=== PATIENT | male | born 1935 | race Caucasian/White ===

== ENCOUNTER 2017-07-13 10:53 | Outpatient (CLI) | payer MEDICARE, BC ==
--- NOTE | 2017-07-13 20:55 | CONSULTATION NOTE ---
Palliative Care Consultation - Referral Referring Provider: Dr. 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 This has been difficult as currently on medications "that may or may not help", has not had any improvement in counts, and recognizes the seriousness of his current condition. Current treatment Danozol 300 mg BID, Jakafi 5 mg BID, and exjade for iron overload. He has had ongoing functional decline and fatigue, increased weakness and dizzyness, severe untreated chronic headache with negative MRI, has transitioned his care to [place] [place]" to minimize travel time and ease of transfusion support. Palliative care to establish goals of care, address symptom management, and here to establish care and rapport. Family meeting with patient, , and daughter Luz. 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 ( to Yuly over 59 years) Support System: Very supportive family in community, 2 children live on [place] and one in [place]. 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 Family History - Family History Family History: Mother: , Cancer (father of cancer 56; mother 89), Father: , Cancer Medications/Allergies - Medications Home Medications: Ambulatory Orders Medication Instructions Recorded Confirmed Finasteride 5 mg PO DAILY 10/12/15 07/13/17 LORazepam [Lorazepam] 1 mg PO DAILY PRN 10/12/15 07/13/17 Sertraline [Zoloft] 150 mg PO DAILY 10/12/15 07/13/17 Acetaminophen [Tylenol Extra 500 mg PO Q4H PRN 05/31/17 07/05/17 Strength] Atorvastatin [Lipitor] 20 mg PO DAILY 05/31/17 07/05/17 Clobetasol Propionate/Emoll 1 applic TOP DAILY 05/31/17 07/13/17 [Clobetasol Emollient 0.05% Crm] Danazol 300 mg PO BID 05/31/17 07/13/17 Metoprolol Succinate 25 mg PO DAILY 05/31/17 07/13/17 Multivitamin [Multiple Vitamins] 1 tab PO DAILY 05/31/17 07/13/17 Deferasirox [Exjade] 500 mg PO DAILY 06/24/17 07/13/17 Ruxolitinib Phosphate [Jakafi] 5 mg PO BID 07/08/17 07/13/17 Hydrocodone/Acetaminophen [Vicodin 0.5 - 1 tab PO Q4HR PRN 07/13/17 07/13/17 5-300 mg Tablet] Polyethylene Glycol 3350 [Miralax] 8.5 - 17 gm PO DAILY PRN 07/13/17 07/13/17 Senna [Senokot] 1 - 2 tab PO DAILY PRN 07/13/17 07/13/17 - Allergies Allergies/Adverse Reactions: Allergies Allergy/AdvReac Type Severity Reaction Status Date / Time No Known Drug Allergies Allergy Verified 11/22/15 14:29 Review of Systems - Constitutional Constitutional: reports: Fatigue, Weight loss, Other (hot flashes) - Eyes Eyes: reports: Vision loss, Corrective lenses - Ears, Nose & Throat Ears, Nose & Throat: reports: Tinnitus, Vertigo, Nasal congestion - Cardiovascular Cardiovascular: reports: Lightheadedness, Exertional dyspnea, Decr. exercise tolerance. denies: Palpitations - Respiratory Respiratory: reports: SOB at rest, SOB with exertion - Gastrointestinal Gastrointestinal: reports: Abdominal distention, Constipation (intermittent), Poor appetite, Early satiety. denies: Reflux/heartburn - Genitourinary Genitourinary: reports: Other - Musculoskeletal Musculoskeletal: reports: Muscle pain, Back pain, Muscle aches, Muscle weakness , Joint pain, Joint swelling - Integumentary Integumentary: reports: Dryness - Neurological Neurological: reports: General weakness, Headache (Reports constant dull ache, exacerbates to the evening and towards end of day. This also exacerbates with his neurologic symptoms of vertigo and lightheadedness. Pain is intense across forehead radiating back to occipital area. Has only used intermittent Tylenol without any response.) - Psychiatric Psychiatric: reports: Depression (Has been on sertraline, titrating up and down and and settled at 150 mg. He reports that did address his persistent tearfulness, and feels currently at adequate dosing.) - Hematologic/Lymphatic Hematologic/Lymphatic: reports: Anemia (Patient has been receiving transfusions to address his symptomatic anemia, did not receive one on Wednesday, hemoglobin 8.2 is quite anxious regarding does get fairly symptomatic. He reports though less response, may be a slow response on the end of this first or second day. Does find this quite discouraging.). denies: Recurrent infections - All Other Systems All Other Systems: reports: Reviewed and negative Physical Exam - Vital Signs Temperature: 98.2 C Pulse Rate: 57 Respiratory Rate: 20 O2 Saturation: 96 (ra at rest; did have ambulate 200 ft. dropped only to 93%) Blood Pressure: 139/63 - Physical Exam General Appearance: positive: Mild distress Eyes Bilateral: positive: Normal inspection ENT: positive: No signs of dehydration Neck: positive: No JVD, Trachea midline Cardiovascular: positive: Regular rate & rhythm Respiratory: positive: Breath sounds nml, Diminished in bases Abdomen: positive: Nml bowel sounds, Tenderness, Distended Skin: positive: Pallor, Dryness Extremities: positive: No pedal edema, Other (upper extremity tremors; these have increased over last couple of weeks) Neurologic/Psychiatric: positive: Oriented x3, Mood/affect nml, Weakness Palliative Care - POLST Patient has POLST: Yes POLST Status: DNR, Comfort Measures Pain: Pain worsening, Location (headache 6/10 worsens to 8/10 be afternoon; is opioid naive; has used apap without effect; told not to use NSAIDS) Tiredness/Fatigue: Severe (7-10) Drowsiness/Sedation: Severe (7-10) Nausea: Mild (1-3) Depression: Moderate (4-6) Anxiety: Moderate (4-6) Dyspnea: Severe (7-10) Constipation: No Feelings of wellbeing/Perceived Quality of Life: Poor, Worsening Performance Status: Patient is having difficulty tolerating increase activity, they did put grab bars in the shower, is still managed to bathe independently. Ambulating short distances is becoming more difficult with breathlessness, tremors, and lower extremity weakness. Patient quite resistant to considering possible use of wheelchair for longer distance. - Palliative Care Discussion: Patient's current understanding of illness is "he is reaching the end", has been somewhat of a frustrating journey given difficulty identifying the exact etiology thus unknown treatment targets and expected outcomes. Patient is becoming more dependent as far as transfusions, and perceives these are of less support as far as "feeling better". Patient is used to being active, "builds things", has built his own home and homes for his children. Finding his activity tolerance and time mostly spent sitting in front of the TV, is poor quality of life indicators.Patient's goal is to focus on quality of life, spending time with family, does not want hospitalization but is willing to accept transfusions and current treatments. We did discuss his goals that end-of-life for to be at home with his family, and introduce the concept of hospice. Patient currently receiving active treatment, is willing to continue and hopeful for some reprieve. He and his have had conversations, she is quite sad and tearful during discussion. His biggest concern is leaving her. Counseling regarding the role of palliative care for support and symptom management, presented information regarding the continuum of care.PAULINO ST completed to reflect patient's goals of care and focus on comfort and avoiding hospitalization. Results - Lab Results Lab results reviewed: Yes Impression and Recommendations - Palliative Care Impression: This is an 82-year-old gentleman with myelodysplastic syndromerefractory cytopenia, myelo proliferative neoplasm, and now transfusion dependent. Patient currently receiving palliative treatments, in attempt to improve counts. Patient with high symptom burden of headache pain, fatigue, breathlessness, dizziness, and poor activity tolerance. Patient with understanding of the seriousness of his illness, hopeful for reprieve and improvement of quality of life. Palliative care to provide support for pain and symptom management. Recommendations/Counseling Done: 1. Acute on chronic headache pain. 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 Patient most likely would benefit from low-dose methadone, is scheduled to see me again on Wednesday, will evaluate current response to treatment. 2. Fatigue, attributed to anemia, this is most likely multifactorial in origin as well. Did introduce could trial some Ritalin at low-dose, will revisit at follow-up visit if would like to pursue. Patient also quite anxious regarding no transfusion this week, is feeling quite dyspneic, dizzy, poor activity tolerance. Is currently banded but worried about pending weekend. At this point given his goals to focus on quality of life, though where trying to avoid transfusions, will recheck counts on . Did encourage energy conservation, declined considering getting wheelchair, though they do feel they have one available. 3. Advanced care planning. Goals of care reviewed, counseling regarding the continuum of care including end-of-life care and hospice. Discussed the complications regarding transition with "blood cancers". PAULINO ST completed as well as questions addressed. Palliative care to follow, patient currently in active treatment, will address pain and symptom management. Time Spent: 75 minutes with greater than 50% of this done in counseling regarding continuum of care anticipatory guidance management of headache pain and fatigue as well as a established and rapport
== END 2017-07-13 10:54 | disposition home or self-care (01) ==
LOC: PC 10:53
PROVIDERS: ATTEND Nurse Practitioner Adult Health
DX: Z51.5 Encounter for palliative care (principal); D46.A Refractory cytopenia with multilineage dysplasia; R51 Headache; R42 Dizziness and giddiness; F32.9 Major depressive disorder, single episode, unspecified; Z87.891 Personal history of nicotine dependence; Z79.899 Other long term (current) drug therapy; Z66 Do not resuscitate
CPT/HCPCS: 99205

== ENCOUNTER 2017-07-19 08:03 | Outpatient (CLI) | payer MEDICARE, BC ==
--- NOTE | 2017-07-19 20:32 | CONSULTATION NOTE ---
Palliative Care Follow Up - Referral Referring Provider: Dr. 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 He is currently receiving Danozol 300 mg twice daily, check of 5 5 mg twice daily, and Exjade for iron overload. Continues to struggle with functional decline and fatigue, weakness and dizziness, most recently received 2 units on Wednesday with very little improvement. He has noticed some decrease in pressure in his abdomen, able to eat better, perceives this is most likely his spleen has some improvement. I had initiated some hydrocodone 5 mg/acetaminophen 325 mg to try with acute headaches particularly building in the evening. These had improved over the weekend, unclear if this is been of help as not needed, does have prolonged tension headaches from description at baseline. Social History - Living Situation Living arrangement: At home Living Situation: With spouse/s.o. Support System: Very supportive family, have many friends and neighbors who are willing to provide support, I can feel overwhelming at times to them. Did have a gathering at [facility], but has less activity tolerance and is more tired. Medications/Allergies - Medications Home Medications: Ambulatory Orders Medication Instructions Recorded Confirmed Finasteride 5 mg PO DAILY 10/12/15 07/19/17 LORazepam [Lorazepam] 1 mg PO DAILY PRN 10/12/15 07/19/17 Sertraline [Zoloft] 150 mg PO DAILY 10/12/15 07/19/17 Acetaminophen [Tylenol Extra 500 mg PO Q4H PRN 05/31/17 07/19/17 Strength] Atorvastatin [Lipitor] 20 mg PO DAILY 05/31/17 07/19/17 Clobetasol Propionate/Emoll 1 applic TOP DAILY 05/31/17 07/19/17 [Clobetasol Emollient 0.05% Crm] Danazol 300 mg PO BID 05/31/17 07/19/17 Metoprolol Succinate 25 mg PO DAILY 05/31/17 07/19/17 Multivitamin [Multiple Vitamins] 1 tab PO DAILY 05/31/17 07/19/17 Deferasirox [Exjade] 500 mg PO DAILY 06/24/17 07/19/17 Ruxolitinib Phosphate [Jakafi] 5 mg PO BID 07/08/17 07/19/17 Hydrocodone/Acetaminophen [Vicodin 0.5 - 1 tab PO Q4HR PRN 07/13/17 07/19/17 5-300 mg Tablet] Polyethylene Glycol 3350 [Miralax] 8.5 - 17 gm PO DAILY PRN 07/13/17 07/19/17 Senna [Senokot] 1 - 2 tab PO DAILY PRN 07/13/17 07/19/17 Gabapentin 100 mg PO ACHS 07/19/17 07/19/17 - Allergies Allergies/Adverse Reactions: Allergies Allergy/AdvReac Type Severity Reaction Status Date / Time No Known Drug Allergies Allergy Verified 11/22/15 14:29 Review of Systems - Constitutional Constitutional: reports: Fatigue, Weight loss, Other (hot flashes) - Eyes Eyes: reports: Vision loss, Corrective lenses - Ears, Nose & Throat Ears, Nose & Throat: reports: Hearing loss - Cardiovascular Cardiovascular: reports: Lightheadedness, Exertional dyspnea, Decr. exercise tolerance - Respiratory Respiratory: reports: Cough (reports dry; no worse), SOB at rest, SOB with exertion (this is more limiting; discussed considering moving bedroom downstairs ; spends most of time in recliner) - Gastrointestinal Gastrointestinal: reports: Constipation, Good appetite - Genitourinary Genitourinary: reports: Frequency, Other (retention symptoms) - Musculoskeletal Musculoskeletal: reports: Muscle weakness - Integumentary Integumentary: reports: Dryness - Neurological Neurological: reports: General weakness, Headache (reports less intense last couple of days; not needing vicodin), Memory problems (more difficulty with concentration; STM) - Psychiatric Psychiatric: reports: Depression (sadness; depression controlled), Anxiety ( reports underlying anxiety disorder; worse at night-uses lorazepam if feeling overwhelmed; usually at night) - Endocrine Endocrine: denies: Diabetes type 2 - Hematologic/Lymphatic Hematologic/Lymphatic: reports: Anemia (received 2 units on Wednesday; reports a little support first day; feeling less benefit with dizzyness/shakiness; worried about future) - All Other Systems All Other Systems: reports: Reviewed and negative Physical Exam - Vital Signs Temperature: 36.5 C Pulse Rate: 54 Respiratory Rate: 18 Blood Pressure: 136/66 - Physical Exam General Appearance: positive: No acute distress Eyes Bilateral: positive: Normal inspection ENT: positive: No signs of dehydration Neck: positive: No JVD, Trachea midline Cardiovascular: positive: Regular rate & rhythm Respiratory: positive: No respiratory distress Abdomen: positive: Soft Skin: positive: Pallor Extremities: positive: No pedal edema, Other (gait shuffled; difficulty getting sitting to standing) Neurologic/Psychiatric: positive: Oriented x3, Weakness, Depressed mood/affect Palliative Care - POLST Patient has POLST: Yes POLST Status: DNR, Comfort Measures Pain: Pain improved, Location (Describes tension headache that starts in the frontal sinus area that travels to the back occipital. Usually worsens in the evenings, reports had some improvement over the last couple days, did not need to use the Vicodin for severity.) Tiredness/Fatigue: Severe (7-10) Drowsiness/Sedation: Severe (7-10) Nausea: None Depression: Moderate (4-6) Anxiety: Moderate (4-6) Dyspnea: Severe (7-10) Anorexia: None Sleep: Sleeps poorly (up several times a night to void; denies dysuria) Constipation: Yes, Managed Feelings of wellbeing/Perceived Quality of Life: Poor, Worsening Performance Status: Patient's activity tolerance continues to decrease, is able to manage bathing with pacing and bars. Does spend most of his time in the recliner, ambulating short distances. Trying to find a balance for keeping him by activity versus his severe fatigue and breathlessness. - Palliative Care Discussion: Patient continues to struggle with ongoing decline of health, aware of the seriousness of situation, PAULINO ST completed last visit, no further questions or concerns regarding advanced care planning. Does have a history of major depression, does feel currently managing his feelings of grief and loss, though it does exacerbate his anxiety particularly in the evenings. Results - Lab Results Lab results reviewed: No Lab and Imaging Results: Pending Impression and Recommendations - Palliative Care Impression: This is an 82-year-old gentleman with myelodysplastic syndromerefractory cytopenia, myelo proliferative neoplasm, and now transfusion dependent. Patient receiving palliative treatments in attempt to improve counts. Continues to present with high symptom burden of fatigue, breathlessness, dizziness, and poor activity tolerance. Palliative care to provide support for pain and symptom management. Recommendations/Counseling Done: 1.Acute on chronic headache pain. Patient did trial the hydrocodone 5 mg/325 mg of acetaminophen only 1-2 times, without much response. Patient does present with ongoing low-grade tension headaches, that often crescendo in the evening, the reports was better over the weekend. Appropriate medication would be amitriptyline, given patient's symptoms already of BPH, will trial gabapentin at low-dose 100 mg in the evening, this may also help with his hot flashes, and support better sleep. Will titrate to effect, if patient tolerates. 2.Fatigue, attributed to anemia, though this is most likely multifactorial in origin as well. Patient does present with decreased activity tolerance, increasing breathlessness despite 2 units of packed red blood cells on Wednesday. Counseling regarding balance of energy conservation, and safety, as well as maintaining activity. 3. Advanced care planning. PAULINO ST in place, counseling regarding normalizing grief and loss process, as well as psychosocial support. Palliative care to continue to follow for pain and symptom management. Will follow up accordingly after MD visit today for further treatment plan and support Time Spent: 40 minutes with greater than 50% of this done in counseling and adjustment to illness, pain and symptom management, anticipatory guidance. Addendum; did follow-up with Dr. Bryant regarding elevated white count, and concern for possible pneumonia given his ongoing dyspnea, chronic dry cough, and decreased exercise tolerance despite transfusion. Patient without fever chills, will go ahead and evaluate with chest x-ray, patient is in agreement but will arrange down in [place] to decrease stress of travel and appointments.
== END 2017-07-19 08:04 | disposition home or self-care (01) ==
LOC: PC 08:03
PROVIDERS: ATTEND Nurse Practitioner Adult Health
DX: Z51.5 Encounter for palliative care (principal); G89.29 Other chronic pain; D46.A Refractory cytopenia with multilineage dysplasia; R05 Cough; R06.00 Dyspnea, unspecified; D72.829 Elevated white blood cell count, unspecified; G44.209 Tension-type headache, unspecified, not intractable; E11.9 Type 2 diabetes mellitus without complications; Z66 Do not resuscitate; Z79.891 Long term (current) use of opiate analgesic; R33.9 Retention of urine, unspecified; R35.0 Frequency of micturition; F32.9 Major depressive disorder, single episode, unspecified; F41.9 Anxiety disorder, unspecified
CPT/HCPCS: 99214

== ENCOUNTER 2017-07-21 13:31 | Outpatient (CLI) | payer MEDICARE, BC ==
--- NOTE | 2017-07-21 16:48 | XRAY Report ---
CHEST X-RAY TWO VIEWS: 07/21/2017 HISTORY: Short of breath, elevated white count. COMPARISON: 10/18/2008. FINDINGS: The heart size is top normal. The lungs are clear. There is no pleural fluid or pneumothorax. Minor degenerative change in the spine. IMPRESSION: NEGATIVE TWO VIEW CHEST X-RAY. CLEAR LUNGS. TD: 07/21/2017 16:47
== END 2017-07-21 13:32 | disposition home or self-care (01) ==
LOC: DI.S 13:31
PROVIDERS: ATTEND Nurse Practitioner Adult Health
DX: R06.00 Dyspnea, unspecified (principal); D72.829 Elevated white blood cell count, unspecified
CPT/HCPCS: 71046

== ENCOUNTER 2017-08-03 11:12 | Outpatient (CLI) | payer MEDICARE, BC ==
--- NOTE | 2017-08-03 20:02 | CONSULTATION NOTE ---
Palliative Care Follow Up - Referral Referring Provider: Dr. 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 He is aware of the seriousness of his illness, but continues to have fluctuating status, needing 1-2 transfusions a week. He was encouraged as he did get a little bit more "boost" from his last transfusion, wondering if he got a "young person's blood". He continues to struggle with ongoing intermittent tension headaches, escalating severe headaches in the evening, has been some improvement with the use of the intermittent Vicodin, hot flashes, and fluctuating anxiety. Palliative care continue to provide support for pain and symptom management, psychosocial support and counseling, and anticipatory guidance Social History - Living Situation Living arrangement: At home Living Situation: With spouse/s.o. Support System: Very supportive family, his Yuly she is trying to train her in tasks for when he is gone. His daughter lives down the street, they have had a couple family gatherings. Medications/Allergies - Medications Home Medications: Ambulatory Orders Medication Instructions Recorded Confirmed Finasteride 5 mg PO DAILY 10/12/15 08/03/17 LORazepam [Lorazepam] 1 mg PO DAILY PRN 10/12/15 08/03/17 Sertraline [Zoloft] 150 mg PO DAILY 10/12/15 08/03/17 Atorvastatin [Lipitor] 20 mg PO DAILY 05/31/17 08/03/17 Clobetasol Propionate/Emoll 1 applic TOP DAILY 05/31/17 08/03/17 [Clobetasol Emollient 0.05% Crm] Danazol 300 mg PO BID 05/31/17 08/03/17 Metoprolol Succinate 25 mg PO DAILY 05/31/17 08/03/17 Deferasirox [Exjade] 500 mg PO DAILY 06/24/17 08/03/17 Ruxolitinib Phosphate [Jakafi] 5 mg PO BID 07/08/17 08/03/17 Hydrocodone/Acetaminophen [Vicodin 2 tab PO Q4HR PRN 07/13/17 08/03/17 5-300 mg Tablet] Polyethylene Glycol 3350 [Miralax] 8.5 - 17 gm PO DAILY PRN 07/13/17 08/03/17 Senna [Senokot] 1 - 2 tab PO DAILY PRN 07/13/17 08/03/17 Gabapentin 600 mg PO ACHS 07/19/17 08/03/17 Loratadine [Claritin] 10 mg PO DAILY 08/03/17 08/03/17 - Allergies Allergies/Adverse Reactions: Allergies Allergy/AdvReac Type Severity Reaction Status Date / Time No Known Drug Allergies Allergy Verified 11/22/15 14:29 Review of Systems - Constitutional Constitutional: reports: Fatigue (worsened yesterday morning; had a pretty good weekend though very limited in activity tolerance), Weakness, Night sweats (had improved initially with gabapentin;), Weight gain (good appetite; eating ice cream) - Eyes Eyes: reports: Vision loss, Corrective lenses - Cardiovascular Cardiovascular: reports: Exertional dyspnea, Decr. exercise tolerance. denies: Chest pain - Respiratory Respiratory: reports: Cough (intermittent and nonproductive), SOB with exertion - Gastrointestinal Gastrointestinal: reports: Abdominal distention, Diarrhea (intermittent every 2- 3 days; soft), Good appetite. denies: Nausea, Reflux/heartburn - Genitourinary Genitourinary: reports: Frequency (at night; no increase in symptoms) - Musculoskeletal Musculoskeletal: reports: Stiffness, Muscle weakness - Integumentary Integumentary: reports: Dryness - Neurological Neurological: reports: General weakness, Headache (dull pain; starts in sinus ( long-term tension headaches) severity builds in evening; has used hydrocodone with some effect but taking 2-4 for control. Chasing pain at this time), Memory problems (STM worsening) - Psychiatric Psychiatric: reports: Anxiety (mostly at night; watches TV most of the day; at night feeling more aware of impending decline) - Hematologic/Lymphatic Hematologic/Lymphatic: reports: Anemia, Petechiae. denies: Recurrent infections - All Other Systems All Other Systems: reports: Reviewed and negative Physical Exam - Vital Signs Temperature: 36.4 C Pulse Rate: 58 Respiratory Rate: 16 Blood Pressure: 145/70 - Physical Exam General Appearance: positive: No acute distress, Alert Eyes Bilateral: positive: Normal inspection ENT: positive: No signs of dehydration Neck: positive: Trachea midline Cardiovascular: positive: Regular rate & rhythm, Systolic murmur Respiratory: positive: Breath sounds nml, Diminished in bases Abdomen: positive: Soft Skin: positive: Bruising (increasing issues with venous access;) Extremities: positive: No pedal edema Neurologic/Psychiatric: positive: Oriented x3, Mood/affect nml, Weakness Palliative Care - POLST Patient has POLST: Yes POLST Status: DNR, Comfort Measures Pain: Location (headache pain see ROS; 09/26) Tiredness/Fatigue: Severe (7-10) Drowsiness/Sedation: Severe (7-10) Nausea: None Depression: Moderate (4-6) Anxiety: Moderate (4-6) Dyspnea: Severe (7-10) Anorexia: None Sleep: Variable sleep pattern Feelings of wellbeing/Perceived Quality of Life: Fair, Worsening Performance Status: Patient with poor activity tolerance, has moved his bedroom to the lower floor as steps are quite problematic. Focally walking some is related to balance, and some to weakness, as well as impacted by dyspnea. Is needing to be mostly sedentary. Is able to bathe, does have a bath bench. I would put him at a PPS of 60% - Palliative Care Discussion: Met with patient independently today, address tell patient was doing, does recognize "not going to make it for long", does feel like they have gotten everything taking care of this far as legal issues and affairs. His biggest concern is the effect on other people, he himself feels that he is with what currently is going on. He reports his children are tearful but still in touch. We just discussed how he is in the waiting time. 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 Patient receiving palliative treatments and attempt to improve his counts. Moderate improvement in symptoms, though continues to have high symptom burden of fatigue , breathlessness, and poor activity tolerance. Palliative care to continue to provide support for pain and symptom management and psychosocial counseling Recommendations/Counseling Done: 1. Acute on chronic headache pain. Patient continues with low-grade tension headaches, did discuss triggers which included pollen, headache pain tends to crescendo through the evening. Patient has tolerated the hydrocodone without any sedation or side effects. Will attempt strategy for "preemptive strike", will take 2 at 1500, repeat 2 at 1700 or at time when pain is escalating, and can repeat another dose prior to bedtime. He will also try some antihistamine, he believes he has some Claritin at home, to see if this will help some of the trigger points. We will also increase his gabapentin to 600 mg in the evening, this is initially helped with his hot flashes, will see if we can improve those as well. 2. Fatigue, this is multifactorial in origin. Patient has fluctuating activity tolerance, pacing activity. 3. Advanced care planning. [address] in place, counseling regarding normalizing grief and loss process as well as psychosocial support. We will continue to check in regularly and watch for transition point to hospice when appropriate Time Spent: Time spent 30 minutes with good than 50% of this done in counseling regarding pain and symptom management and anticipatory guidance
== END 2017-08-03 11:13 | disposition home or self-care (01) ==
LOC: PC 11:12
PROVIDERS: ATTEND Nurse Practitioner Adult Health
DX: Z51.5 Encounter for palliative care (principal); G89.29 Other chronic pain; G44.209 Tension-type headache, unspecified, not intractable; D46.A Refractory cytopenia with multilineage dysplasia; Z66 Do not resuscitate; Z79.891 Long term (current) use of opiate analgesic
CPT/HCPCS: 99214

== ENCOUNTER 2017-08-17 15:12 | Outpatient (CLI) | payer MEDICARE, BC ==
--- NOTE | 2017-08-17 20:19 | CONSULTATION NOTE ---
Palliative Care Follow Up - Referral Referring Provider: Dr. 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 He is requiring 1-2 unit transfusions a week, now needing leukoreduced. He is aware of the seriousness of his illness, and continues to wonder about his prognosis, including in the context of deciding whether to get a venous access device. He has been having increased difficulty, he does have upper extremity bruising, but most likely is can continue to need weekly blood draws and transfusions. At this point in time , he still feels what he calls "decent", with the transfusions, he does have some fatigue, but decreased shortness of breath this week. His white count continues to climb this week was 34.7, neutrophils 28.6, no chills or fever, or increase in cough. He continues with intermittent headaches, the hydrocodone is becoming less effective, he has benefiting though from the gabapentin 600 mg in the evening with his hot flashes and sleep. His headaches are descriptive is most likely tension in nature, exacerbated by his underlying disease process , are dull in nature and crescendo into the evening. Social History - Living Situation Living arrangement: At home Living Situation: With spouse/s.o. Support System: Supportive friends and family Medications/Allergies - Medications Home Medications: Ambulatory Orders Medication Instructions Recorded Confirmed Finasteride 5 mg PO DAILY 10/12/15 08/17/17 LORazepam [Lorazepam] 1 mg PO TID PRN 10/12/15 08/17/17 Sertraline [Zoloft] 150 mg PO DAILY 10/12/15 08/17/17 Atorvastatin [Lipitor] 20 mg PO DAILY 05/31/17 08/17/17 Clobetasol Propionate/Emoll 1 applic TOP DAILY 05/31/17 08/17/17 [Clobetasol Emollient 0.05% Crm] Danazol 300 mg PO BID 05/31/17 08/17/17 Metoprolol Succinate 25 mg PO DAILY 05/31/17 08/17/17 Deferasirox [Exjade] 500 mg PO DAILY 06/24/17 08/17/17 Ruxolitinib Phosphate [Jakafi] 5 mg PO BID 07/08/17 08/17/17 Polyethylene Glycol 3350 [Miralax] 8.5 - 17 gm PO DAILY PRN 07/13/17 08/17/17 Senna [Senokot] 1 - 2 tab PO DAILY PRN 07/13/17 08/17/17 Gabapentin 600 mg PO ACHS 07/19/17 08/17/17 Loratadine [Claritin] 10 mg PO DAILY PRN 08/03/17 08/17/17 Oxycodone HCl 10 - 20 mg PO Q4HR PRN 08/17/17 08/17/17 - Allergies Allergies/Adverse Reactions: Allergies Allergy/AdvReac Type Severity Reaction Status Date / Time No Known Drug Allergies Allergy Verified 11/22/15 14:29 Review of Systems - Constitutional Constitutional: reports: Fatigue (some improvement), Night sweats (improved with use of gabapentin), Weight stable. denies: Fever, Chills - Eyes Eyes: reports: Vision loss, Corrective lenses - Ears, Nose & Throat Ears, Nose & Throat: reports: Hearing loss (mild), Postnasal drainage (allergy symptoms did not seem to improve) - Cardiovascular Cardiovascular: reports: Exertional dyspnea, Decr. exercise tolerance - Respiratory Respiratory: reports: SOB with exertion. denies: SOB at rest - Gastrointestinal Gastrointestinal: reports: Diarrhea (intermittent with constipation), Good appetite. denies: Nausea, Reflux/heartburn - Musculoskeletal Musculoskeletal: reports: Muscle weakness, Other (poor activity tolerance) - Integumentary Integumentary: reports: Dryness - Neurological Neurological: reports: Dizziness (occasional; but improved), Memory problems ( STM at times) - Psychiatric Psychiatric: reports: Anxiety - Hematologic/Lymphatic Hematologic/Lymphatic: reports: Anemia (one unit this week;) - All Other Systems All Other Systems: reports: Reviewed and negative Physical Exam - Vital Signs Temperature: 36.7 C Pulse Rate: 58 Respiratory Rate: 16 - Physical Exam General Appearance: positive: No acute distress, Alert Eyes Bilateral: positive: Normal inspection ENT: positive: No signs of dehydration Neck: positive: No JVD, Trachea midline Cardiovascular: positive: Regular rate & rhythm Respiratory: positive: Breath sounds nml Abdomen: positive: Soft Skin: positive: Pallor, Bruising (multiple bruises forearms from labs) Extremities: positive: No pedal edema Neurologic/Psychiatric: positive: Oriented x3, Mood/affect nml, Weakness Palliative Care - POLST Patient has POLST: Yes POLST Status: DNR, Comfort Measures Pain: Location (headache; fluctuating but poor response at times; dislikes taste ) Tiredness/Fatigue: Moderate (4-6) Drowsiness/Sedation: Mild (1-3) Nausea: None Depression: Moderate (4-6) Anxiety: Mild (1-3) Dyspnea: Mild (1-3) Anorexia: None Sleep: Variable sleep pattern Constipation: No Feelings of wellbeing/Perceived Quality of Life: Fair, Acceptable, No change Performance Status: Patient is mostly sedentary, did have a little bit more energy this week as far as being able to ambulate. He is able to attend his own ADLs, but has moved his bedroom downstairs to avoid the stress of ambulating upstairs. He still is able to ambulate without assistive devices, and displaces activity. Continues with fatigue and limited activity tolerance. - Palliative Care Discussion: Both patient and aware of limited prognosis, we discussed and counseled regarding feelings of grief and loss, and feeling like they are in the waiting time or "twilight zone". Is quite pleased to still be able to receive transfusions, of some limited benefit, and will continue as long as benefit outweighs burden. Thus the struggle, and deciding about Port-A-Cath versus PICC line. Goals remain to continue as long as possible with transfusion support, and end-of-life hospice support and a at home. Results - Lab Results Lab results reviewed: Yes Lab and Imaging Results: Hemoglobin 8.7; hematocrit 25.6%; platelets 37,000; WBCs 34.7; neutrophils 28.6 Impression and Recommendations - Palliative Care Impression: This is a jennifer 82-year-old gentleman with myelodysplastic syndrome/refractory cytopenia, myeloproliferative neoplasm and transfusion dependent. Patient receiving palliative treatments in attempt to improve his counts. Continues with moderate symptom burden of fatigue, breathlessness, headache and poor activity tolerance. Palliative care to continue to provide support for pain and symptom management, anticipatory guidance, until transition to hospice. Recommendations/Counseling Done: 1. Acute on chronic headache pain. Patient continues with low-grade tension headaches with escalation in the evenings. Had tried antihistamine to see if pollen was triggering, still may be a factor but has not found it to be of assistance. Did have an escalating headache, that did not respond to the hydrocodone, despite repeated dosing. Dislikes the taste, and pill burden, will go ahead and switch to oxycodone 10 mg tabs. Counseling regarding equal analgesic of the 2 tabs of hydrocodone for the 1 tab of oxycodone 10 mg, but given patient's pain level distress prescription written for 1-2 every 4 hours as needed. Counseling provided on use, able to teach back instructions. 2. Hot flashes. Does report gabapentin 600 mg in the evening, with increased dose has some improvement. These continue to be fluctuating but less in severity. Will leave at current dosing level prescription provided for 600 mg capsules again to decrease pill burden. 3. Fatigue, this again remains multifactorial in origin. Patient does have fluctuating activity tolerance remains quite sedentary, but is able to address his ADLs currently and is ambulating without assistive device. 4. Venous access. Had Izabel DURHAM, oncology nurse practitioner joined me in conversation regarding weighing benefits of Port-A-Cath versus PICC line. Given patient's concerns, most likely limited life expectancy, as well as the fact he would need repeated accessing of the Port-A-Cath, discussed recommendation of PICC line. Counseling provided regarding support needed, and procedure. Patient would like to discuss prognosis with Dr. Bryant before proceeds further, will go ahead and write order to go through insurance and preop with the goal to possibly place next week. 5. Advanced care planning [address] in place, at the time the burdens of transfusions are outweighing the benefits or no longer an option, will transition to hospice team. Goals remain to focus on quality of life, extend quantity as long as feasible but no aggressive measures. Time Spent: 30 minutes with greater than 50% of this done in counseling regarding venous access, symptom management, and anticipatory guidance and coordination of care with clinical staff
== END 2017-08-17 15:13 | disposition home or self-care (01) ==
LOC: PC 15:12
PROVIDERS: ATTEND Nurse Practitioner Adult Health
DX: Z51.5 Encounter for palliative care (principal); G44.229 Chronic tension-type headache, not intractable; R61 Generalized hyperhidrosis; R53.83 Other fatigue; D46.9 Myelodysplastic syndrome, unspecified; R06.09 Other forms of dyspnea; M62.81 Muscle weakness (generalized); F32.9 Major depressive disorder, single episode, unspecified; F41.9 Anxiety disorder, unspecified; C94.6 Myelodysplastic disease, not elsewhere classified; Z66 Do not resuscitate
CPT/HCPCS: 99214

== ENCOUNTER 2017-08-23 10:31 | Outpatient (CLI) | payer MEDICARE, BC ==
--- NOTE | 2017-08-23 14:18 | CONSULTATION NOTE ---
Palliative Care Follow Up - Referral Referring Provider: Dr. 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 He is requiring frequent transfusions of 1-2 weeks, now needing leuko-reduced. He just had a PICC line placed, was not "as bad as he thought", and is currently receiving transfusion. He had called on Wednesday with increased tightness in his chest, wheezing, and tight cough. Patient without fever or chills, patient has long-standing fatigue and low- grade malaise, was started on albuterol inhaler (had one but found it helpful(, and 5 day burst of prednisone at 20 mg daily and instructed to go to ED if worsened. Patient had not progressed and shortness of breath, nor productive cough, but did have increased her chest discomfort, his chest x-ray for his PICC line placement show no effusions. His white count is elevated even more so, Dr. Bryant provided prescription for Z-Mark prior to our appointment. Patient does have increase in tremulousness, this could be attributed to the steroids, is feeling poorly from his cough, but does report increased energy with steroids as well. He does report the oxycodone has been effective for his headache, continues to struggle with unknown regarding his prognosis. He was offered further chemotherapy to start next week, he chose this over supportive/ comfort measures at this point in time Social History - Living Situation Living arrangement: At home Living Situation: With spouse/s.o. Support System: Is very supportive family, all aware of the seriousness of the condition, remains hopeful for is much time as possible, all in the context of quality of life Medications/Allergies - Medications Home Medications: Ambulatory Orders Medication Instructions Recorded Confirmed Finasteride 5 mg PO DAILY 10/12/15 08/23/17 LORazepam [Lorazepam] 1 mg PO TID PRN 10/12/15 08/23/17 Sertraline [Zoloft] 150 mg PO DAILY 10/12/15 08/23/17 Atorvastatin [Lipitor] 20 mg PO DAILY 05/31/17 08/23/17 Clobetasol Propionate/Emoll 1 applic TOP DAILY 05/31/17 08/23/17 [Clobetasol Emollient 0.05% Crm] Danazol 300 mg PO BID 05/31/17 08/23/17 Metoprolol Succinate 25 mg PO DAILY 05/31/17 08/23/17 Deferasirox [Exjade] 500 mg PO DAILY 06/24/17 08/23/17 Ruxolitinib Phosphate [Jakafi] 5 mg PO BID 07/08/17 08/23/17 Polyethylene Glycol 3350 [Miralax] 8.5 - 17 gm PO DAILY PRN 07/13/17 08/23/17 Senna [Senokot] 1 - 2 tab PO DAILY PRN 07/13/17 08/23/17 Gabapentin 600 mg PO ACHS 07/19/17 08/23/17 Loratadine [Claritin] 10 mg PO DAILY PRN 08/03/17 08/23/17 Oxycodone HCl 10 - 20 mg PO Q4HR PRN 08/17/17 08/23/17 Albuterol 2.5 mg INH PRN PRN 08/23/17 08/23/17 Azithromycin [Zithromax] 250 mg PO DAILY 08/23/17 08/23/17 Polyethylene Glycol 3350 [Miralax] 17 gm PO DAILY PRN 08/23/17 08/23/17 predniSONE [Prednisone] 20 mg PO .5 DAYS MDD last dose 08/2408/23/17 08/23/17 - Allergies Allergies/Adverse Reactions: Allergies Allergy/AdvReac Type Severity Reaction Status Date / Time No Known Drug Allergies Allergy Verified 11/22/15 14:29 Review of Systems - Constitutional Constitutional: reports: Fatigue, Weakness. denies: Fever - Eyes Eyes: reports: Vision loss, Corrective lenses - Ears, Nose & Throat Ears, Nose & Throat: reports: Hearing loss, Dry mouth - Cardiovascular Cardiovascular: reports: Exertional dyspnea, Decr. exercise tolerance. denies: Chest pain - Respiratory Respiratory: reports: Cough (nonproducative; pain behind sternum; worse with coughing), Wheezing (reports worse; relief with albuteral inhaler), SOB with exertion - Gastrointestinal Gastrointestinal: reports: Constipation, Good appetite - Genitourinary Genitourinary: reports: Other (retention) - Musculoskeletal Musculoskeletal: reports: Stiffness, Muscle weakness - Integumentary Integumentary: reports: Dryness - Neurological Neurological: reports: General weakness, Headache (using Oxycodone 10 mg with good relief though with some sedation), Memory problems (reports increase STM issues), Abnormal gait (reports balance issues; no falls), Other (reports increase tremors last few days) - Psychiatric Psychiatric: reports: Anxiety - Hematologic/Lymphatic Hematologic/Lymphatic: reports: Anemia (needing one unit today; second tomorrow ; PICC placed earlier), Bruising (upper forearm with brusing with poor venous access) - All Other Systems All Other Systems: reports: Reviewed and negative Physical Exam - Vital Signs Temperature: 36.8 C Pulse Rate: 55 Respiratory Rate: 20 Blood Pressure: 137/73 - Physical Exam General Appearance: positive: Alert, Mild distress Eyes Bilateral: positive: Normal inspection ENT: positive: No signs of dehydration. negative: Pharyngeal erythema Neck: positive: Trachea midline Cardiovascular: positive: Regular rate & rhythm Respiratory: positive: Diminished throughout. negative: Wheezes, Rales, Rhonchi Abdomen: positive: Soft, Nml bowel sounds Skin: positive: Pallor, Other (new PICC drsg intact) Extremities: positive: No pedal edema Neurologic/Psychiatric: positive: Oriented x3, Weakness Palliative Care - POLST Patient has POLST: Yes POLST Status: DNR, Selective Treatment Pain: Pain improved, Location (headache using one tab with better relief) Tiredness/Fatigue: Moderate (4-6) (improved energy with prednisone) Drowsiness/Sedation: Mild (1-3) Nausea: None Depression: Mild (1-3) Anxiety: Moderate (4-6) Dyspnea: Moderate (4-6) Anorexia: None Sleep: Variable sleep pattern Constipation: Yes, Opoid induced, Unmanaged Feelings of wellbeing/Perceived Quality of Life: Fair, Worsening Performance Status: Patient does continue to report progressive weakness, increased difficulty with balance, poor activity tolerance. Is able to ambulate short distances, does have shower bench for bathing. Discussed concerns for high risk for falls, is up at night with increased trouble urinating. - Palliative Care Discussion: Patient remains somewhat ambivalent regarding his current condition, he is aware of the seriousness of his condition, felt like it come to place of peace and understanding, now offered chemotherapy. Is thankful, but finds living in the "unknown" difficult. Will continue as long as benefit outweighs burden, though with feeling as bad has he had today, was concerned. His goal at end of life is to be at home with family, and not have suffering extended. 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 Current plan is to start Vidaza, he continues to receive these palliative treatments in attempt to improve his counts and quality of life. He does have an exacerbation most likely a bronchitis, does present with moderate symptom burden. Palliative care to continue provide support for pain and symptom management, anticipatory guidance, and assist with transition to hospice when desired and/or appropriate Recommendations/Counseling Done: 1 . Bronchitis. Patient did get some relief with prednisone and albuterol, though does present with increased cough and chest discomfort, has been started on a Z-Mark. 's perception is patient did better with energy on the prednisone, will evaluate towards end of week, may benefit from maintenance Decadron. 2. Acute on chronic headache pain. Patient continues with low-grade tension headaches with the exacerbation in the evenings. Has tried multiple different approaches, will continue on the gabapentin 600 mg at bedtime, he did find the oxycodone more effective, will continue to use as needed. 3. Generalized weakness. Patient encouraged to use walker for ambulation, counseling regarding fall risk, instructed to use urinal at bedside at night. They do have a wheelchair, instructed to use for longer distances, patient to remain active but balance with energy conservation. 4. Venous access. Patient does have PICC line now, will schedule visits accordingly with [facility]. 5. Advanced care planning. PAULINO ST in place, continue to weigh the benefits and burdens of moving forward with treatment and transfusions, patient continues to focus on quality of life, grateful for extended quantity of life. Palliative care to continue to follow for psychosocial support, symptom management, and anticipatory guidance. Time Spent: 35 minutes with greater than 50% of this done in counseling regarding pain and symptom management and anticipatory guidance
== END 2017-08-23 10:32 | disposition home or self-care (01) ==
LOC: PC 10:31
PROVIDERS: ATTEND Nurse Practitioner Adult Health
DX: Z51.5 Encounter for palliative care (principal); J40 Bronchitis, not specified as acute or chronic; G44.229 Chronic tension-type headache, not intractable; R53.1 Weakness; R26.89 Other abnormalities of gait and mobility; D46.A Refractory cytopenia with multilineage dysplasia; Z95.828 Presence of other vascular implants and grafts; Z79.899 Other long term (current) drug therapy; Z66 Do not resuscitate; Z91.81 History of falling; Z79.891 Long term (current) use of opiate analgesic
CPT/HCPCS: 99214

== ENCOUNTER 2017-08-23 11:21 | Day surgery (SDC) | payer MEDICARE, BC ==
[2017-08-23 11:34] VITALS: BP 161/74
--- NOTE | 2017-08-23 12:25 | XRAY Report ---
FRONTAL CHEST: 08/23/2017 CLINICAL INDICATION: PICC placement. COMPARISON: 08/04/2017. FINDINGS: Frontal view of the chest demonstrates a normal cardiac silhouette. The lungs are clear. No effusion or pneumothorax is present. Right arm PICC terminates in the distal superior vena cava. IMPRESSION: RIGHT ARM PICC TERMINATING IN THE DISTAL SUPERIOR VENA CAVA. TD: 08/23/2017 12:24
== END 2017-08-23 11:22 | disposition home or self-care (01) ==
LOC: SDS 11:21
PROVIDERS: ATTEND Registered Nurse
PROC: 05H533Z Insertion of Infusion Device into Right Subclavian Vein, Percutaneous Approach (ICD-10-PCS; principal; 2017-08-23 11:30)
DX: D46.9 Myelodysplastic syndrome, unspecified (principal)
CPT/HCPCS: 36569; C1751; 71045

== ENCOUNTER 2017-09-14 09:23 | Outpatient (CLI) | payer MEDICARE, BC ==
--- NOTE | 2017-09-14 10:36 | CONSULTATION NOTE ---
Palliative Care Follow Up - Referral Referring Provider: Dr. 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 He has been very clear as far as his goals, he is willing to accept red cell transfusions, and has been dependent since April 2017. He is aware that his prognosis is poor, but has been pleasantly surprised up till now he is felt quite well. He reports he felt significantly worse over the weekend, he had bleeding of somewhat copious amounts from his thighs where he had injections of the Vidaza, had called the provider commission agent livestock and was instructed to use pressure bandages. He has large hematomas across his abdomen and into his thigh, has no signs or symptoms of cellulitis, but it does somewhat continue to use. He also presents with petechiae which are new bilaterally in his eyes, he is very pale. He reports this is as bad as he is ever felt, he has had some dizziness, he has been more off balance, unable to tolerate any activity without shortness of breath, and is feeling quite overwhelmed. Social History - Living Situation Living arrangement: At home Living Situation: With spouse/s.o. (has supportive family, Yuly his is quite concerned, and does recognize the seriousness of his illness. They have been somewhat "waiting for the shoe to drop", they are wondering if there in that transition.) Medications/Allergies - Medications Home Medications: Ambulatory Orders Medication Instructions Recorded Confirmed Finasteride 5 mg PO DAILY 10/12/15 09/14/17 LORazepam [Lorazepam] 1 mg PO TID PRN 10/12/15 09/14/17 Sertraline [Zoloft] 150 mg PO DAILY 10/12/15 09/14/17 Atorvastatin [Lipitor] 20 mg PO DAILY 05/31/17 09/14/17 Clobetasol Propionate/Emoll 1 applic TOP DAILY 05/31/17 09/14/17 [Clobetasol Emollient 0.05% Crm] Danazol 300 mg PO BID 05/31/17 09/14/17 Metoprolol Succinate 25 mg PO DAILY 05/31/17 09/14/17 Deferasirox [Exjade] 500 mg PO DAILY 06/24/17 09/14/17 Ruxolitinib Phosphate [Jakafi] 5 mg PO BID 07/08/17 09/14/17 Senna [Senokot] 2 tab PO BID 07/13/17 09/14/17 Gabapentin 600 mg PO ACHS 07/19/17 09/14/17 Loratadine [Claritin] 10 mg PO DAILY PRN 08/03/17 09/14/17 Oxycodone HCl 10 - 20 mg PO Q4HR PRN 08/17/17 09/14/17 Albuterol 2.5 mg INH PRN PRN 08/23/17 09/14/17 Polyethylene Glycol 3350 [Miralax] 17 gm PO DAILY PRN 08/23/17 09/14/17 Ondansetron HCl [Zofran] 8 mg PO Q8H PRN #30 tablet 08/31/17 09/14/17 Prochlorperazine Maleate 10 mg PO Q6H PRN #30 tablet 08/31/17 09/14/17 [Compazine] Dexamethasone 4 mg PO DAILY 09/14/17 09/14/17 Nystatin 5 ml PO QID 09/14/17 09/14/17 - Allergies Allergies/Adverse Reactions: Allergies Allergy/AdvReac Type Severity Reaction Status Date / Time No Known Drug Allergies Allergy Verified 11/22/15 14:29 Review of Systems - Constitutional Constitutional: reports: Fatigue - Ears, Nose & Throat Ears, Nose & Throat: reports: Mouth lesions (new complaint of stomatitis; difficulty swallowing) - Cardiovascular Cardiovascular: reports: Lightheadedness, Exertional dyspnea, Decr. exercise tolerance - Respiratory Respiratory: reports: SOB at rest, SOB with exertion. denies: Cough - Gastrointestinal Gastrointestinal: reports: Abdominal distention, Bloating (improved some), Early satiety. denies: Constipation (reports BM yesterday; bowels currently managed on senna 2 tabs BID; Miralax daily), Rectal bleeding - Genitourinary Genitourinary: reports: Frequency (improved with less abdominal pressure) - Musculoskeletal Musculoskeletal: reports: Muscle aches, Stiffness, Muscle weakness, Transfer issues (needed wheelchair this am) - Integumentary Integumentary: reports: Dryness, Other (bleeding from old injection sites: "soaking dressings") - Neurological Neurological: reports: Headache (improved low grade tension; needing oxycodone only 2-3 times with acute pain) - Psychiatric Psychiatric: reports: Depression (feeling overwhelmed with acute decline), Anxiety (up at 0300 am with anxiety) - Hematologic/Lymphatic Hematologic/Lymphatic: reports: Anemia, Bruising, Petechiae - All Other Systems All Other Systems: reports: Reviewed and negative Physical Exam - Vital Signs Temperature: 36.8 C Pulse Rate: 79 Respiratory Rate: 18 O2 Saturation: 97 (ra @ rest) Blood Pressure: 150/72 - Physical Exam General Appearance: positive: Moderate distress, Anxious Eyes Bilateral: positive: Other (petechiae in lower conjunctivae; reports present 2-3 days) ENT: positive: Oral lesions (large 1 cm erosion right lower buccal area; reports one on left; scattered white candidiasis area) Neck: positive: Lymphadenopathy (R), Lymphadenopathy (L) Cardiovascular: positive: Regular rate & rhythm Respiratory: positive: Breath sounds nml Abdomen: positive: Nml bowel sounds, Distended Skin: positive: Bruising, Wound (right thigh with raised 1 cm pustule; oozing some; hematoma abdomen and thighs) Extremities: positive: No pedal edema Neurologic/Psychiatric: positive: Oriented x3, Depressed mood/affect (concerned over feeling so poorly) Palliative Care - POLST Patient has POLST: Yes POLST Status: Comfort Measures Pain: Pain improved (headache; low grade manageable;) Tiredness/Fatigue: Severe (7-10) Drowsiness/Sedation: None Nausea: None Depression: Moderate (4-6) Anxiety: Moderate (4-6) Dyspnea: Severe (7-10) Anorexia: Mild (1-3) Sleep: Variable sleep pattern Constipation: Yes, Opoid induced, Managed Feelings of wellbeing/Perceived Quality of Life: Poor, Worsening Performance Status: Patient unable to tolerate any activity, just ambulate a few steps. Reports his balance is worse, is dyspnea with any kind of activity. Has been mostly recliner bound over weekend. Denies any falls. - Palliative Care Discussion: Patient feeling very poorly, is hoping transfusion may give him some relief, but does again recognize he is continuing to decline. Remains poised to make transition to end-of-life care, is going to continue transfusions and support as long as it makes sense. Patient continues to want to avoid hospitalizations , he does have a PAULINO ST in place which is comfort measures. 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 Has had significant decline over the last several days, including functional, higher symptom burden, palliative care to provide support until transition to hospice. Recommendations/Counseling Done: 1. Constipation. Patient currently taking 2 senna twice daily, and MiraLAX daily with BM yesterday. Had had significant constipation over the last week. Reports he is feeling much more comfortable, less abdominal pressure, abdomen nontender and softer on exam today. 2. Acute on chronic headache pain. Patient continues with low-grade tension headaches, acute exacerbation has abated. He is continued on the gabapentin 600 mg at bedtime with good relief. 3. Right thigh wound. This is a result of the Vidaza, area cleansed with normal saline and dressed with Mepilex. Instructed not to remove for greater than a week. And less active signs of bleeding. Has multiple other openings from injection sites, provided dressings and instruction of using to keep covered. 4. Oral candidiasis. Patient is using normal saline rinses for lesions, does have superimposed candidiasis. Nystatin 5 mils 4 times daily ordered, instructed to swish and swallow. Instructions reviewed with and patient. 5. Muscle weakness. Patient's counts given past experiences not as low as would expect regarding his functional decline. Will receive 2 units today, with hope to improve his overall status including his dyspnea. 6. Advanced care planning. Patient and overwhelmed with patient's rapid decline, arrangements made to see patient later in the week at home visit. Patient may indeed be getting closer to transitioning to hospice. We will continue evaluate patient's response in the context of his goals Time Spent: 45 minutes with greater than 50% of this done in counseling coordination of care and follow-up and anticipatory guidance
== END 2017-09-14 09:24 | disposition home or self-care (01) ==
LOC: PC 09:23
PROVIDERS: ATTEND Nurse Practitioner Adult Health
DX: Z51.5 Encounter for palliative care (principal); K59.03 Drug induced constipation; T40.2X5D Adverse effect of other opioids, subsequent encounter; G44.229 Chronic tension-type headache, not intractable; L76.32 Postprocedural hematoma of skin and subcutaneous tissue following other procedure; Y84.8 Other medical procedures as the cause of abnormal reaction of the patient, or of later complication, without mention of misadventure at the time of the procedure; B37.0 Candidal stomatitis; M62.81 Muscle weakness (generalized); D46.A Refractory cytopenia with multilineage dysplasia; Z79.899 Other long term (current) drug therapy
CPT/HCPCS: 99215

== ENCOUNTER 2017-09-14 11:13 | Emergency (ER) | payer MEDICARE, BC ==
--- NOTE | 2017-09-14 12:50 | ED Physician Documentation ---
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 Was in the [facility] today for PRBC and plts transfusion and developed confusion, L facial droop and dysarthria gone after 5 min. Now back to normal, but still thinks he has the facial droop.) Review of Systems Ten Systems: 10 systems reviewed and negative Constitutional: denies: Fever, Chills Eyes: denies: Loss of vision, Decreased vision Cardiac: denies: Chest pain / pressure, Palpitations Respiratory: denies: Dyspnea, Cough GI: denies: Abdominal Pain PD PAST MEDICAL HISTORY - Past Medical History Past Medical History: Yes Cardiovascular: Hypertension Respiratory: None Endocrine/Autoimmune: Other GI: None : Benign prostate hypertrophy HEENT: None Psych: Depression Musculoskeletal: Chronic back pain Derm: None - Past Surgical History Past Surgical History: Yes General: Other Ortho: Knee replacement /CRATE ICER: Other HEENT: Tonsil/Adenoidectomy - Present Medications Home Medications: Ambulatory Orders Medication Instructions Recorded Confirmed Finasteride 5 mg PO DAILY 10/12/15 09/14/17 LORazepam [Lorazepam] 1 mg PO TID PRN 10/12/15 09/14/17 Sertraline [Zoloft] 150 mg PO DAILY 10/12/15 09/14/17 Atorvastatin [Lipitor] 20 mg PO DAILY 05/31/17 09/14/17 Clobetasol Propionate/Emoll 1 applic TOP DAILY 05/31/17 09/14/17 [Clobetasol Emollient 0.05% Crm] Danazol 300 mg PO BID 05/31/17 09/14/17 Metoprolol Succinate 25 mg PO DAILY 05/31/17 09/14/17 Deferasirox [Exjade] 500 mg PO DAILY 06/24/17 09/14/17 Ruxolitinib Phosphate [Jakafi] 5 mg PO BID 07/08/17 09/14/17 Senna [Senokot] 2 tab PO BID 07/13/17 09/14/17 Gabapentin 600 mg PO ACHS 07/19/17 09/14/17 Loratadine [Claritin] 10 mg PO DAILY PRN 08/03/17 09/14/17 Oxycodone HCl 10 - 20 mg PO Q4HR PRN 08/17/17 09/14/17 Albuterol 2.5 mg INH PRN PRN 08/23/17 09/14/17 Polyethylene Glycol 3350 [Miralax] 17 gm PO DAILY PRN 08/23/17 09/14/17 Ondansetron HCl [Zofran] 8 mg PO Q8H PRN #30 tablet 08/31/17 09/14/17 Prochlorperazine Maleate 10 mg PO Q6H PRN #30 tablet 08/31/17 09/14/17 [Compazine] Dexamethasone 4 mg PO DAILY 09/14/17 09/14/17 Nystatin 5 ml PO QID 09/14/17 09/14/17 - Allergies Allergies/Adverse Reactions: Allergies Allergy/AdvReac Type Severity Reaction Status Date / Time No Known Drug Allergies Allergy Verified 11/22/15 14:29 - Social History Does the pt smoke?: No Smoking Status: Never smoker Does the pt drink ETOH?: Yes Does the pt have substance abuse?: No - Immunizations Immunizations are current?: Yes - POLST Patient has POLST: Yes PD ED PE NORMAL - Vitals Vital signs reviewed: Yes - General General: Alert and oriented X 3, No acute distress - HEENT HEENT: PERRL, EOMI - Neck Neck: Supple, no meningeal sign, No bony TTP - Cardiac Cardiac: RRR, No murmur - Respiratory Respiratory: No respiratory distress, Clear bilaterally - Abdomen Abdomen: Normal bowel sounds, Soft, Non tender - Back Back: No CVA TTP, No spinal TTP - Derm Derm: Normal color, Warm and dry, Other (massive ecchymnosis low abd wall, bedside sono, no abd FF.) - Extremities Extremities: No deformity, No tenderness to palpate - Neuro Neuro: Alert and oriented X 3, pole tester 2-12 intact, Normal speech Eye Opening: Spontaneous Motor: Obeys Commands Verbal: Oriented GCS Score: 15 NIHSS - Time Time: 12:45 - Level of Consciousness Level of consciousness: (0) Alert, Keenly responsive LOC Questions: (0) Answers both Q's correct LOC Commands: (0) Performs both correctly - Gaze Best Gaze: (0) Normal - Visual Visual: (0) No loss - Facial Palsy Facial Palsy: (0) Normal, symmetrical movement - Motor Arms (both separate) Motor Arm (right): (0) No drift Motor Arm (left): (0) No drift - Motor Legs (both separate) Motor Leg (right): (0) No drift Motor Leg (left): (0) No drift - Limb Ataxia Limb Ataxia: (0) Absent - Sensory Sensory: (0) Normal - Best Language Best Language: (0) No aphasia - Dysarthria Dysarthria: (0) Normal - Extinction and Inattention (formally neg Extinction and inattention: (0) No abnormality - Total Score/Results Total Score/Result: 0 Results - Vitals Vitals: Vital Signs - 24 hr 09/14/17 09/14/17 09/14/17 11:21 11:41 14:07 Temperature 36.9 C 36.2 C L Heart Rate 62 62 56 L Respiratory 14 15 15 Rate Blood Pressure 157/75 H 137/73 H 160/80 H O2 Saturation 97 96 98 09/14/17 09/14/17 09/14/17 14:28 15:07 16:22 Temperature Heart Rate 66 59 L 57 L Respiratory 15 16 14 Rate Blood Pressure 111/66 138/64 H 145/78 H O2 Saturation 98 97 97 09/14/17 09/14/17 09/14/17 16:44 17:06 18:07 Temperature 35.5 C L 36.5 C Heart Rate 54 L 54 L 58 L Respiratory 17 14 18 Rate Blood Pressure 149/73 H 148/66 H 147/62 H O2 Saturation 96 96 97 09/14/17 18:30 Temperature Heart Rate 60 Respiratory 16 Rate Blood Pressure 120/62 O2 Saturation 97 Oxygen O2 Source Room air - EKG (time done) 1307 Rate: Rate (enter#) (53) Rhythm: NSR [place]: LAD Ischemia: Q waves (lateral) Computer interpretation: Agree with computer - Labs Labs: Laboratory Tests 09/14/17 09:33 Blood Type A POSITIVE Antibody Screen NEGATIVE Crossmatch IS Only See Detail - Rads (name of study) CT Head Radiology: EMP read contemporaneously (3 areas of parenchymal hemorrhage in the iveth, left posterior temporal and right posterior parietal areas.) PD MEDICAL DECISION MAKING - ED course ED course: 82-year-old gentleman with myelodysplastic syndrome/myeloma under treatment presents with TIA symptoms. ABCD 2 score is 3. Aspirin is held given his low platelets. He is transfused 2 units of blood which were ready for him already in the [facility] clinic as he is in palliative care. He was found to have 3 areas of small parenchymal hemorrhage including one in the brainstem on CT. In combination with his thrombocytopenia this is of course very concerning and at high risk. I recommended to him and his transfer to [place] for neuro ICU monitoring, especially given the high mortality of a brainstem hemorrhage. He understands his risk and his does too and they both would like to be discharged. There was no platelets available for him on the [facility] today but I did call over to Izabel Linn in the clinic to see if they could get platelets to be transfused tomorrow morning. I did speak with Izabel Linn, platelets are being readied and they will reach out to him to have him come to clinic tomorrow for platelet transfusion. He was alert and oriented and in my opinion had capacity and ability to cogently sign out AGAINST MEDICAL ADVICE. His reasoning seems sound and he is understanding that regardless of this new acute diagnosis he was approaching the end of his life. He understands the risks of leaving including and disability. His also verbalized this understanding. Departure - Departure Disposition: 07 Against Medical Advice Clinical Impression: Parenchymal hemorrhage, Thrombocytopenia Myeloma Qualifiers: Multiple myeloma remission status: not in remission Qualified Code(s): C90.00 - Multiple myeloma not having achieved remission Condition: Serious Record reviewed to determine appropriate education?: Yes Discharge Date/Time: 09/14/17 19:00
--- NOTE | 2017-09-14 14:02 | CT Report ---
EXAM: CT HEAD EXAM DATE: 09/14/2017 01:36 PM. CLINICAL HISTORY: TIA sx. COMPARISON: 10/12/2015. TECHNIQUE: Multiaxial CT images were obtained from the foramen magnum to the vertex. Reformats: Coron al. IV contrast: None. In accordance with CT protocol optimization, one or more of the following dose reduction techniques w ere utilized for this exam: automated exposure control, adjustment of mA and/or KV based on patient s ize, or use of iterative reconstructive technique. FINDINGS: Parenchyma: Multiple small foci of hemorrhage including right posterior parietal cortical 5 mm. Left posterior temporal cortical 8 mm. Right dorsal midbrain/iveth 8 x 9 mm Extraaxial Spaces: Normal for age. No subdural or epidural collections identified. Ventricles: Normal in size and position. Sinuses and Orbits: Mucosal thickening bilateral maxillary sinuses. Imaged paranasal sinuses, orbits, and mastoids show no significant abnormality. Bones: No evidence of fracture or calvarial defect. Other: None. IMPRESSION: 3 areas of parenchymal hemorrhage right posterior parietal cortical 5 mm. Left posterior temporal cortical 8 mm. Right dorsal midbrain/ iveth 8 x 9 mm. RADIA The above findings were discussed with JAMES Jain by Dr. Merlene Toribio at 14:01 hrs on . Referring Provider Line: [phone] SITE ID: [id number]
[2017-09-14 19:13] VITALS: BP 120/62
== END 2017-09-14 19:00 | disposition left against medical advice (07) ==
LOC: ED 11:13
DX: I61.3 Nontraumatic intracerebral hemorrhage in brain stem (principal); I61.8 Other nontraumatic intracerebral hemorrhage; R47.1 Dysarthria and anarthria; R29.810 Facial weakness; R41.0 Disorientation, unspecified; I10 Essential (primary) hypertension; D69.6 Thrombocytopenia, unspecified; C90.00 Multiple myeloma not having achieved remission; D46.9 Myelodysplastic syndrome, unspecified; Z53.20 Procedure and treatment not carried out because of patient's decision for unspecified reasons
CPT/HCPCS: 70450; 80053; 83690; 85025; 85610; 86850; 86900; 86901; 86920; 93005; 99284